=== PATIENT | male | born 1985 | race Two or more races ===

== ENCOUNTER 2018-12-16 09:46 | Inpatient (IN) | payer OTHER ==
[2018-12-16 10:33] VITALS: BMI 28.8
--- NOTE | 2018-12-16 11:19 | HP ---
COWS - Scale Resting Pulse: 0= [place] 80 or Below Sweatin= Chills/Flushing Restless Observation: 1= Difficult to Sit Still Pupil Size: 0= Normal to Room Light Bone or Joint Aches: 1= Mild Discomfort Runny Nose/ Eye Tearin= None GI Upset > 30mins: 2= Nausea/Diarrhea Tremor Observation: 1= Tremor [place], Not Seen Yawning Observation: 0= None Anxiety or Irritability: 2=Irritable/Anxious Goose Flesh Skin: 0=Smooth Skin COWS Score: 8 CIWA Score Nausea/Vomitin-Mild Nausea/No Vomiting Muscle Tremors: 1-None Visible, but [place] Anxiety: 4-Mod. Anxious/Guarded Agitation: 1-Slight > Activity Paroxysmal Sweats: No Perspiration Orientation: 0-Oriented Tacttile Disturbances: 0-None Auditory Disturbances: 2-Mild Harshness/Frighten Visual Disturbances: 2-Mild Sensitivity Headache: 0-None Present CIWA-Ar Total Score: 11 - Admission Criteria OASAS Guidelines: Admission for Medically Managed Detox: Requires at least one of the followin. CIWA greater than 12 2. Seizures within the past 24 hours 3. Delirium tremens within the past 24 hours 4. Hallucinations within the past 24 hours 5. Acute intervention needed for co occurring medical disorder 6. Acute intervention needed for co occurring psychiatric disorder 7. Severe withdrawal that cannot be handled at a lower level of care (continued vomiting, continued diarrhea, abnormal vital signs) requiring intravenous medication and/or fluids 8. Admission ROS [facility] Allergies/Adverse Reactions: Allergies Allergy/AdvReac Type Severity Reaction Status Date / Time No Known Allergies Allergy Verified 12/16/18 09:54 History of Present Illness: pt here requesting detox from opiate and etoh use , reports went to [facility] today and was referred to this facility does not have any paperwork claims does not recall if he was seen by anybody . heroin use : 4 bags /day since 10 years ago , [place] , needles from the exchange , denies sharing , +re-using, abscess most recently 3 months ago did not seek medical attention , OD x 2 , most recently 2 months ago , Narcan by a friend did not go to hospital , latest use yesterday , current symptoms as above . denies significant sobriety in the last 10 years . etoh : 1 pint/day x 15 years , reports tremors if not drinking , reports he starts drinking in the mornings, denies seizures , + blackouts , + falls while intoxicated denies injuries , denies driving , latest use yesterday . denies other illicits tobacco : " when I smoke I don't count my cigarettes , I just smoke " PMHX : denies PShx : denies PSych : sad , anxiety - on meds buspar , klonopin , seroquel , latest rx 1 mo ago shx : lives alone This report was requested by: Trena Katz | Reference #: [id number] Others' Prescriptions Patient Name: Bartolome Nash Date: 1985 Address: [address] [address] Sex: Male Rx Written Rx Dispensed Drug Quantity Days Supply Prescriber Name 12/03/2018 12/03/2018 clonazepam 2 mg tablet 60 30 Dianna King [employer]ACHINE [employer] 11/03/2018 11/03/2018 clonazepam 2 mg tablet 60 30 Dianna King MACHINE [employer] 10/06/2018 10/06/2018 clonazepam 2 mg tablet 60 30 Kudrich, Benigno 09/08/2018 09/08/2018 clonazepam 2 mg tablet 60 30 Kudrich, [facility] 08/25/2018 08/26/2018 oxycodone-acetaminophen 5-325 mg tab 20 3 Kathy Loaiza (PA) 08/08/2018 08/08/2018 clonazepam 2 mg tablet 60 30 Oneida Lopes () 07/11/2018 07/11/2018 clonazepam 2 mg tablet 60 30 Dianna King MACHINE [employer]ENER 06/09/2018 06/09/2018 clonazepam 2 mg tablet 60 30 Dianna King MACHINE FA[employer]ENER 05/12/2018 05/12/2018 clonazepam 2 mg tablet 60 30 Dianna King MACHINE FA[employer]ENER 04/07/2018 04/14/2018 clonazepam 2 mg tablet 60 30 Dianna King MACHINE FA[employer]ENER 03/07/2018 03/18/2018 clonazepam 2 mg tablet 60 30 Dianna King MACHINE FA[employer]ENER 02/07/2018 02/17/2018 clonazepam 2 mg tablet 60 30 Dianna King MACHINE FA[employer]ENER Patient Name: Bartolome Nash Date: 1985 Address: [address] [id number] Sex: Male Rx Written Rx Dispensed Drug Quantity Days Supply Prescriber Name 08/08/2018 08/08/2018 oxycodone-acetaminophen 5-325 mg tab 12 2 Jaime Issa MD 08/01/2018 08/01/2018 oxycodone-acetaminophen 5-325 mg tab 5 2 Julia Villa PA Patient Name: Bartolome Nash Date: 1985 Address: [address] [place] [address] Sex: Male Rx Written Rx Dispensed Drug Quantity Days Supply Prescriber Name 08/05/2018 08/05/2018 oxycodone-acetaminophen 5-325 mg tablet 20 5 Brandi Loaizam A (FAB) 08/05/2018 08/05/2018 lorazepam 2 mg tablet 1 1 LarWilian gonzaleziam A (FAB) Patient Name: Barotlome Nash Date: 1985 Address: [address] [place], [place] [id number] Sex: Male Rx Written Rx Dispensed Drug Quantity Days Supply Prescriber Name 01/17/2018 01/17/2018 clonazepam 2 mg tablet 60 30 Dianna King MACHINE FASTENER * - Drugs marked with an asterisk are compound drugs. If the compound drug is made up of more than one controlled substance, then each controlled substance will be a separate row in the table. Exam Limitations: Clinical Condition - Ebola screening Have you traveled outside of the country in the last 21 days: No (N) Have you had contact with anyone from an Ebola affected area: No Do you have a fever: No - Review of Systems Constitutional: See HPI EENT: reports: See HPI, Nose Congestion Respiratory: reports: No Symptoms reported Cardiac: reports: No Symptoms Reported GI: reports: See HPI : reports: No Symptoms Reported Musculoskeletal: reports: See HPI Integumentary: reports: See HPI, Other (punched window yesterday) Neuro: reports: No Symptoms reported Endocrine: reports: No Symptoms Reported Psychiatric: reports: Orientated x3, Agitated, Anxious Patient History - Smoking Cessation Smoking history: Current every day smoker Have you smoked in the past 12 months: Yes Hx Chewing Tobacco Use: No Initiated information on smoking cessation: No - Substances abused Alcohol Substance route: Oral Frequency: Daily Amount used: VODKA- 1PT Age of first use: 15 Date of last use: 12/15/18 Heroin Substance route: Injection Frequency: Daily Amount used: 4BAGS Age of first use: 21 Date of last use: 12/16/18 Family Disease History - Family Disease History Family History: Denies Admission Physical Exam BHS - Vital Signs Vital Signs: Vital Signs - 24 hr 12/16/18 09:50 Temperature 98.6 F Pulse Rate 69 Respiratory 18 Rate Blood Pressure 148/96 - Physical General Appearance: Yes: Mild Distress, Anxious HEENTM: Yes: EOMI, Normal Voice Respiratory: Yes: Lungs Clear, Normal Breath Sounds, No Respiratory Distress, No Accessory Muscle Use Neck: Yes: No masses,lesions,Nodules, Trachea in good position Cardiology: Yes: Regular Rhythm, Regular Rate, S1, S2 Abdominal: Yes: Non Tender, Soft Musculoskeletal: Yes: full range of Motion, Gait Steady Extremities: Yes: Normal Range of Motion, Non-Tender Neurological: Yes: Fully Oriented, Alert, Motor Strength 5/5 Integumentary: Yes: Warm, Other (right 3rd dip superficial excoriation , full ROm no tenderness to palpation minimal track martinez UE) - Diagnostic (1) Alcohol abuse Current Visit: Yes Status: Acute Breathalyzer - Breathalyzer Breathalyzer: 0 Urine Drug Screen - Test Device Lot number: [id number] Expiration date: 09/11/20 - Control Is test valid?: Yes - Results Drug screen NEGATIVE: Yes Inpatient Rehab Admission - Rehab Decision to Admit Inpatient rehab admission?: No
[2018-12-16] MEDS ORDERED: MAG HYDROX/AL HYDROX/SIMETH 30 ML UNIT-DOSE CUP PO PRN (11:43)
[2018-12-16] MEDS ORDERED: ACETAMINOPHEN 325 MG TABLET (FP) PO PRN (11:43)
[2018-12-16] MEDS ORDERED: MENTHOL/PHENOL 1 EACH UD MM PRN (11:43)
[2018-12-16] MEDS ORDERED: MAGNESIUM HYDROX 2400MG/30ML ORAL SUSPENSION 30 ML CUP PO PRN (11:43)
[2018-12-16] MEDS ORDERED: METHOCARBAMOL 500 MG TABLET PO PRN (11:43)
[2018-12-16] MEDS ORDERED: chlordiazePOXIDE HCL 10 MG CAPSULE PO PRN (11:43)
[2018-12-16] MEDS ORDERED: IBUPROFEN 400 MG TABLET (FP) PO PRN (11:43)
[2018-12-16] MEDS ORDERED: NICOTINE POLACRILEX 2 MG GUM BUC PRN (11:43)
[2018-12-16] MEDS ORDERED: MAGNESIUM CITRATE 300 ML BOTTLE PO PRN (11:43)
[2018-12-16] MEDS ORDERED: MELATONIN 5 MG TABLETS PO PRN (11:43)
[2018-12-16] MEDS ORDERED: BISMUTH SUBSALICYLATE 262 MG/15 ML BTL PO PRN (11:43)
--- NOTE | 2018-12-16 12:14 | PN ---
[facility] Progress Note Note: PATIENT REPORTS HISTORY OF ABNORMAL SKIN RASH / REACTION RELATED TO PPD PLACEMENT IN PAST. CXR ORDERED AT PATIENT'S REQUEST. David HYDE NP
[2018-12-16] MEDS: BACITRACIN/POLYMYXIN B SULFATE 15 GM TUBE TP SCH ×2 (12:38→21:56)
[2018-12-16] MEDS: chlordiazePOXIDE HCL 25 MG CAPSULE PO SCH ×2 (12:52→21:55)
[2018-12-16] MEDS: hydrOXYzine PAMOATE 25 MG CAPSULE (FP) PO PRN (17:41)
--- NOTE | 2018-12-16 18:36 | CONSULT ---
[facility] Psychiatric Consult - Data Date of interview: 12/16/18 Admission source: [facility] Identifying data: First admission to [facility] for this 33 y/o [place] male self-referred for detoxification (heroin, alcohol). Examined at [address] [place] [address]. Patient is single, a father of two, domiciled (lives alone), unemployed and supported on welfare. Substance Abuse History: Discussed in this session. Patient admits to sporadic use of heroin (snorting). His main substance is heroin. Details in [facility] report as follows: Smoking history: Current every day smoker. Have you smoked in the past 12 months: Yes. Hx Chewing Tobacco Use: No. Initiated information on smoking cessation: No. - Substances abused. Alcohol. Substance route: Oral. Frequency: Daily. Amount used: VODKA- 1PT. Age of first use: 15. Date of last use: 12/15/18. Heroin. Substance route: Injection. Frequency: Daily. Amount used: 4BAGS. Age of first use: 21. Date of last use: 12/16/18 Medical History: Patient endorses good general health. Psychiatric History: Patient denies history of psychiatric hospitalizations. Mr Nash reports that he has received the diagnosis of Schizophrenia. Sees a psychiatrist at the [facility] in [facility] for medication management ( seroquel 400 mg/am + 800 mg/hs in addition to buspar 15 mg/bid + wellbutrin XL 300 mg/day). Patient insists that he takes his medications as prescribed. Denies history of suicide attempts. Physical/Sexual Abuse/Trauma History: Patient denies. Additional Comment: Drug screen is negative. Mental Status Exam - Mental Status Exam Alert and Oriented to: Time, Place, Person Cognitive Function: Good Patient Appearance: Well Groomed (braided hairdo) Mood: Anxious, Apprehensive (over missing doses of his medications) Affect: Appropriate, Mood Congruent, Normal Range Patient Behavior: Talkative, Appropriate, Cooperative Speech Pattern: Clear, Appropriate Voice Loudness: Normal Thought Process: Goal Oriented Thought Disorder: Not Present Hallucinations: Denies Suicidal Ideation: Denies Homicidal Ideation: Denies Insight/Judgement: Poor Sleep: Poorly, Difficulty falling asleep (argues that he cannot fall asleep without his dose of seroquel at bedtime) Appetite: Good Muscle strength/Tone: Normal Gait/Station: Normal Psychiatric Findings - Problem List ([place] 1, 2,3) (1) Alcohol dependence Current Visit: Yes Status: Chronic (2) Substance induced mood disorder Current Visit: Yes Status: Chronic (3) Schizoaffective disorder Current Visit: Yes Status: Chronic Comment: As per history and self-report. (4) Insomnia Current Visit: Yes Status: Chronic - Initial Treatment Plan Initial Treatment Plan: Psychoeducation. Support. Detoxification. Sleep hygiene. Medications resumed as : seroquel 400 mg po hs (reduced to avoid oversedation) + 200 mg po daily + wellbutrin XL 300 mg po daily + buspar 15 mg po bid. Side effects/benefits of each drug are discussed with the patient. Mr Nash has verbalized his agreement with this plan of care.
--- NOTE | 2018-12-16 21:42 | PN ---
[facility] Progress Note Note: Psychiatry Attending's note (follow-up) : Medications verified. Bottles seen (nurse on duty). Refill for seroquel 400 mg tab # / days. Confirmed. Dated 12/03/18. Concordant with 1200 mg as a daily dose. Will resume at 400 mg po hs and observe for oversedation. Always possible during detoxification process (drug-drug interactions). Psychiatry will re-evaluate in the morning and titrate as indicated. Discussed with nurse (via telephone).
[2018-12-16] MEDS: THIAMINE HCL 100 MG TABLET (FP) PO SCH (21:55)
[2018-12-16] MEDS: busPIRone HCL 10 MG TABLET (FP) PO SCH (21:56)
[2018-12-16] MEDS ORDERED: QUEtiapine FUMARATE 100 MG TABLET (FP) PO SCH (22:00)
[2018-12-16] MEDS ORDERED: QUEtiapine FUMARATE 200 MG TABLET PO SCH (22:00)
[2018-12-17] MEDS: hydrOXYzine PAMOATE 25 MG CAPSULE (FP) PO PRN (02:03)
[2018-12-17] MEDS: chlordiazePOXIDE HCL 25 MG CAPSULE PO SCH (06:14)
[2018-12-17] MEDS ORDERED: PATIENT'S OWN MEDICATION (NON-FORMULARY) (Bupropion Hcl [Wellbutrin Xl] 300 MG) PO SCH (10:00)
--- NOTE | 2018-12-17 10:07 | PN ---
S CIWA - CIWA Score Nausea/Vomitin-Mild Nausea/No Vomiting Muscle Tremors: 2 Anxiety: 2 Agitation: 2 Paroxysmal Sweats: 1-Minimal Palms Moist Orientation: 0-Oriented Tacttile Disturbances: 0-None Auditory Disturbances: 0-None Visual Disturbances: 0-None Headache: 1-Very Mild CIWA-Ar Total Score: 9 BHS Progress Note (SOAP) Subjective: mild tremor tolerate food and fluid well social with peers in day room Objective: 12/17/18 10:06 Vital Signs Temperature 97.8 F 12/16/18 12:51 Pulse Rate 72 12/16/18 12:51 Respiratory Rate 18 12/17/18 03:28 Blood Pressure 125/81 12/16/18 12:51 O2 Sat by Pulse Oximetry (%) 12/17/18 10:06 lab noted Assessment: 12/17/18 10:06 alcohol withdrawal sx Plan: continue detox
[2018-12-17] MEDS: BACITRACIN/POLYMYXIN B SULFATE 15 GM TUBE TP SCH ×2 (10:44→23:06)
[2018-12-17] MEDS: QUEtiapine FUMARATE 100 MG TABLET (FP) PO SCH (10:44)
[2018-12-17] MEDS: busPIRone HCL 10 MG TABLET (FP) PO SCH ×2 (10:44→22:36)
[2018-12-17] MEDS: PRENATAL VITAMINS W/ FOLIC ACID TABLET (FP) PO SCH (10:47)
[2018-12-17 10:57] LABS: HEMATOCRIT 41.7 % (35.4-49); HEMOGLOBIN 13.9 GM/dL (11.7-16.9); MCH 33.7 pg (25.7-33.7); MCHC 33.4 g/dl (32.0-35.9); MEAN CELL VOLUME 100.8 fl (80-96); MEAN PLT VOLUME 9.4 fl (7.5-11.1); PLATELET COUNT 232 K/MM3 (134-434); RBC 4.13 M/mm3 (4.00-5.60); RDW 13.1 % (11.9-15.9); WHITE BLOOD COUNT 5.4 K/mm3 (4.0-10.0)
[2018-12-17 10:59] LABS: ALBUMIN 3.6 g/dl (3.4-5.0); BILIRUBIN,TOTAL 0.5 mg/dL (0.2-1); CALCIUM 9.3 mg/dL (8.5-10.1); CREATININE 0.9 mg/dL (0.55-1.3); TOT PROT 6.8 g/dl (6.4-8.2)
[2018-12-17] MEDS: chlordiazePOXIDE 5 MG CAPSULE PO SCH ×2 (13:22→22:36)
[2018-12-17] MEDS ORDERED: chlordiazePOXIDE 5 MG CAPSULE PO ONE (14:00)
--- NOTE | 2018-12-17 20:28 | PN ---
[facility] Progress Note Note: Psychiatry Attending's note : Seroquel is titrated to 600 mg po hs. Patient is observed as ambulatory, steady and sociable. Follows redirections. No evidence of sedation. Visible all day long. Alert and cognitively intact. Doing well. Stable mental status. Intervention is discussed with the patient. Mr Nash consented.
[2018-12-17] MEDS ORDERED: QUEtiapine FUMARATE 100 MG TABLET (FP) ONE (21:47)
[2018-12-17] MEDS: QUEtiapine FUMARATE 300 MG TABLET PO SCH (22:38)
[2018-12-17] MEDS: THIAMINE HCL 100 MG TABLET (FP) PO SCH (22:38)
[2018-12-18] MEDS: chlordiazePOXIDE 5 MG CAPSULE PO SCH (06:42)
[2018-12-18] MEDS: PRENATAL VITAMINS W/ FOLIC ACID TABLET (FP) PO SCH (11:40)
[2018-12-18] MEDS: busPIRone HCL 10 MG TABLET (FP) PO SCH ×2 (11:40→22:15)
[2018-12-18] MEDS: BACITRACIN/POLYMYXIN B SULFATE 15 GM TUBE TP SCH ×2 (11:40→22:17)
[2018-12-18] MEDS: QUEtiapine FUMARATE 100 MG TABLET (FP) PO SCH (11:41)
--- NOTE | 2018-12-18 12:32 | PN ---
S CIWA - CIWA Score Nausea/Vomitin Muscle Tremors: 2 Anxiety: 2 Agitation: 2 Paroxysmal Sweats: 1-Minimal Palms Moist Orientation: 0-Oriented Tacttile Disturbances: 1-Very Mild Itch/Numbness Auditory Disturbances: 1-Very Mild Visual Disturbances: 0-None Headache: 2-Mild CIWA-Ar Total Score: 13 BHS Progress Note (SOAP) Subjective: alert,irritable,anxious,interrupted sleep,tremor Objective: 12/18/18 12:30 Vital Signs Temperature 98.7 F 12/18/18 09:24 Pulse Rate 76 12/18/18 09:24 Respiratory Rate 18 12/18/18 09:24 Blood Pressure 132/69 12/18/18 09:24 O2 Sat by Pulse Oximetry (%) 12/18/18 12:30 Laboratory Last Values WBC 5.4 K/mm3 (4.0-10.0) 12/17/18 07:00 RBC 4.13 M/mm3 (4.00-5.60) 12/17/18 07:00 Hgb 13.9 GM/dL (11.7-16.9) 12/17/18 07:00 Hct 41.7 % (35.4-49) 12/17/18 07:00 MCV 100.8 fl (80-96) H 12/17/18 07:00 MCH 33.7 pg (25.7-33.7) 12/17/18 07:00 MCHC 33.4 g/dl (32.0-35.9) 12/17/18 07:00 RDW 13.1 % (11.9-15.9) 12/17/18 07:00 Plt Count 232 K/MM3 (134-434) 12/17/18 07:00 MPV 9.4 fl (7.5-11.1) 12/17/18 07:00 Sodium 141 mmol/L (136-145) 12/17/18 07:00 Potassium 4.0 mmol/L (3.5-5.1) 12/17/18 07:00 Chloride 105 mmol/L (98-107) 12/17/18 07:00 Carbon Dioxide 30 mmol/L (21-32) 12/17/18 07:00 Anion Gap 6 MMOL/L (8-16) L 12/17/18 07:00 BUN 8 mg/dL (7-18) 12/17/18 07:00 Creatinine 0.9 mg/dL (0.55-1.3) 12/17/18 07:00 Est GFR (CKD-EPI)AfAm 130.52 12/17/18 07:00 Est GFR (CKD-EPI)NonAf 112.62 12/17/18 07:00 Random Glucose 99 mg/dL (74-106) 12/17/18 07:00 Calcium 9.3 mg/dL (8.5-10.1) 12/17/18 07:00 Total Bilirubin 0.5 mg/dL (0.2-1) 12/17/18 07:00 AST 58 U/L (15-37) H 12/17/18 07:00 ALT 105 U/L (13-61) H 12/17/18 07:00 Alkaline Phosphatase 125 U/L (45-117) H 12/17/18 07:00 Total Protein 6.8 g/dl (6.4-8.2) 12/17/18 07:00 Albumin 3.6 g/dl (3.4-5.0) 12/17/18 07:00 RPR Titer Nonreactive (NONREACTIVE) 12/17/18 07:00 HIV 1&2 Antibody Screen Negative 12/17/18 07:00 HIV P24 Antigen Negative 12/17/18 07:00 Assessment: 12/18/18 12:31 withdrawal symptom Plan: continue detox,alt ,ast elevated address with patient,patient will see his PMD for follow up after discharge
[2018-12-18] MEDS: chlordiazePOXIDE HCL 10 MG CAPSULE PO SCH ×2 (14:14→22:15)
[2018-12-18] MEDS ORDERED: QUEtiapine FUMARATE 100 MG TABLET (FP) ONE (21:08)
[2018-12-18] MEDS: THIAMINE HCL 100 MG TABLET (FP) PO SCH (22:15)
[2018-12-18] MEDS: QUEtiapine FUMARATE 300 MG TABLET PO SCH (22:18)
[2018-12-19] MEDS: chlordiazePOXIDE HCL 10 MG CAPSULE PO SCH (06:12)
[2018-12-19 09:29] VITALS: BP 129/85; PULSE 82; TEMP 96.9
--- NOTE | 2018-12-19 19:24 | DS ---
[facility] Detox Discharge Summary Admission Date: 12/16/18 Discharge Date: 12/19/18 - History Present History: Alcohol Dependence Additional Comments: PATIENT REFERRED [facility] ([place], [place]) FOR AFTERCARE. CXR (DONE FOR POSITIVE PPD NOTED WHILE PATIENT WAS ADMITTED FOR DETOX) NEGATIVE FOR ACUTE CHEST PATHOLOGY. PATIENT WAS DISCHARGED FROM DETOX UNIT IN STABLE MEDICAL CONDITION. Pertinent Past History: S.A.D., Depression, Insomnia, Schizoaffective Disorder. - Physical Exam Results Vital Signs: Vital Signs Temperature 96.9 F L 12/19/18 09:28 Pulse Rate 82 12/19/18 09:28 Respiratory Rate 18 12/19/18 09:28 Blood Pressure 129/85 12/19/18 09:28 O2 Sat by Pulse Oximetry (%) Pertinent Admission Physical Exam Findings: WITHDRAWAL SYMPTOMS. Laboratory Tests 12/17/18 12/17/18 12/17/18 07:00 07:00 07:00 WBC 5.4 RBC 4.13 Hgb 13.9 Hct 41.7 MCV 100.8 H MCH 33.7 MCHC 33.4 RDW 13.1 Plt Count 232 MPV 9.4 Sodium 141 Potassium 4.0 Chloride 105 Carbon Dioxide 30 Anion Gap 6 L BUN 8 Creatinine 0.9 Est GFR (CKD-EPI)AfAm 130.52 Est GFR (CKD-EPI)NonAf 112.62 Random Glucose 99 Calcium 9.3 Total Bilirubin 0.5 AST 58 H ALT 105 H Alkaline Phosphatase 125 H Total Protein 6.8 Albumin 3.6 RPR Titer HIV 1&2 Antibody Screen Negative HIV P24 Antigen Negative 12/17/18 07:00 WBC RBC Hgb Hct MCV MCH MCHC RDW Plt Count MPV Sodium Potassium Chloride Carbon Dioxide Anion Gap BUN Creatinine Est GFR (CKD-EPI)AfAm Est GFR (CKD-EPI)NonAf Random Glucose Calcium Total Bilirubin AST ALT Alkaline Phosphatase Total Protein Albumin RPR Titer Nonreactive HIV 1&2 Antibody Screen HIV P24 Antigen LABS NOTED. - Treatment Hospital Course: Detox Protocol Followed, Detoxed Safely, Responded well, Discharged Condition Good Patient has Accepted a Rehab Referral to: PATIENT REFERRED TO [facility], [place], [place] - Medication Discharge Medications: Ambulatory Orders Bupropion HCl [Wellbutrin Xl] 300 mg PO DAILY 12/16/18 Buspirone HCl [Buspar -] 15 mg PO BID 12/16/18 Loratadine 10 mg PO DAILY 12/16/18 Prazosin HCl [Minipress] 2 mg PO DAILY 12/16/18 Quetiapine Fumarate [Seroquel -] 400 mg PO DAILY 12/16/18 Quetiapine Fumarate [Seroquel -] 800 mg PO HS 12/16/18 - Diagnosis (1) Positive PPD Status: Acute (2) Alcohol dependence Status: Chronic Qualifiers: Substance use status: in withdrawal Complication of substance-induced condition: uncomplicated Qualified Code(s): F10.230 - Alcohol dependence with withdrawal, uncomplicated (3) Insomnia Status: Chronic Qualifiers: Insomnia type: unspecified Qualified Code(s): G47.00 - Insomnia, unspecified (4) Schizoaffective disorder Status: Chronic Qualifiers: Schizoaffective disorder type: unspecified Qualified Code(s): F25.9 - Schizoaffective disorder, unspecified (5) Substance induced mood disorder Status: Chronic - AMA Did Patient Leave Against Medical Advice: No
== END 2018-12-19 08:55 | disposition home or self-care (01) | DRG 775 ==
LOC: YASAS 09:46 → Y3N 11:48
PROVIDERS: ADMIT Surgery; ATTEND Surgery
PROC: HZ2ZZZZ Detoxification Services for Substance Abuse Treatment (ICD-10-PCS; principal; 2018-12-16)
DX: F10.230 Alcohol dependence with withdrawal, uncomplicated (principal); F19.24 Other psychoactive substance dependence with psychoactive substance-induced mood disorder; F25.9 Schizoaffective disorder, unspecified; F32.9 Major depressive disorder, single episode, unspecified; G47.00 Insomnia, unspecified; R76.11 Nonspecific reaction to tuberculin skin test without active tuberculosis
CPT/HCPCS: 36415; 71046-TC-FY; 80053; 85027; 86593; 87389